=== PATIENT | female | born 1995 | race Hispanic/Latino ===

== ENCOUNTER 2020-07-24 12:00 | Day surgery (SDC) | payer MEDICAID ==
[2020-07-17 11:45] LABS: BASOPHILS % (AUTO) 0.3 % (0.0-5.0); EOSINOPHILS % (AUTO) 1.9 % (0.0-8.0); HEMATOCRIT 43.6 % (36-48); MEAN CORPUSCULAR HEMOGLOBIN 29.6 pg (27.0-33.0); MEAN CORPUSCULAR HGB CONC 33.3 g/dL (32.0-36.0); MONOCYTES % (AUTO) 5.5 % (3.0-13.0); NEUTROPHILS % (AUTO) 62.1 % (40.0-77.0); PLATELET COUNT (AUTO) 232 K/uL (130-400); RED CELL DISTRIBUTION WIDTH 12.6 % (11.0-15.5); WHITE BLOOD COUNT (AUTO) 8.6 K/uL (4.8-10.8)
[2020-07-23 12:20] VITALS: BP 117/70
[~2020-07-24] VITALS: Ht 159 cm; Wt 72.7 kg
[2020-07-24] VITALS (20 sets, daily range): BP systolic 103–128; BP diastolic 63–75
[~2020-07-24 12:00] MED LIST: LURA20TA PO; LURA40TA PO; PREN1TAB26 PO
[2020-07-24] MEDS: LACTATED RINGERS 1000ML 1,000 ML IV SCH ×2 (12:22→15:45)
[2020-07-24] MEDS ORDERED: FENTANYL CITRATE PF 50 MCG/1 ML 2ML VIAL ONE (12:44)
[2020-07-24] MEDS ORDERED: SUCCINYLCHOLINE CHLORIDE 20 MG/ML 10 ML VIAL ONE (12:44)
[2020-07-24] MEDS ORDERED: ROCURONIUM 10MG/1ML SYR 10 MG/ML ML ONE (12:44)
[2020-07-24] MEDS ORDERED: LIDOCAINE PF 2% 5ML ABBOJECT ONE (12:44)
[2020-07-24] MEDS ORDERED: PROPOFOL 10 MG/ML 20ML VIAL IV ONE (12:44)
[2020-07-24] MEDS ORDERED: PHENYLEPHRINE HCL 10 MG/ML 1ML VIAL IV ONE (15:18)
[2020-07-24] MEDS ORDERED: SODIUM CHLORIDE 0.9% 10 ML VIAL ONE (15:18)
[2020-07-24] MEDS ORDERED: GLYCOPYRROLATE 1 MG/5 ML SYRINGE ONE (15:30)
[2020-07-24] MEDS ORDERED: NEOSTIGMINE 5MG/5ML SYR IV ONE (15:30)
[2020-07-24] MEDS ORDERED: MEPERIDINE-PF 25 MG/ML SYG ONE ×2 (15:50→15:57)
--- NOTE | 2020-07-24 17:10 | NUR ---
intake: drinking sips of water without complaining of nausea or no emesis at present time.
--- NOTE | 2020-07-24 17:10 | NUR ---
activity: hob elevated 45 degrees without complaining of dizziness or nausea.
== END 2020-07-24 18:00 | disposition home or self-care (01) ==
LOC: DAH 12:00
PROVIDERS: ATTEND Specialist
DX: Z30.2 Encounter for sterilization (principal); F32.9 Major depressive disorder, single episode, unspecified; Z20.828 Contact with and (suspected) exposure to other viral communicable diseases; Z79.899 Other long term (current) drug therapy
CPT/HCPCS: 36415 ×2; 58671; 82948; 84703; 85025; 86850 ×2; 86900 ×2; 86901 ×2; A4215 ×2; A4221; A4222; A4223; A4264; A4351; A4649; A4663; A6260; C1769 ×2; C9803; J0330; J2001; J2175 ×2; J2704; J2710; J3010; J3490; J7030 ×2; J7120 ×2; U0003; J2370

== ENCOUNTER → 2021-03-12 | Outpatient (CLI) | payer MEDICAID ==
[~2021-03-12] MED LIST changes: -PREN1TAB26 PO
== END | disposition home or self-care (01) ==
LOC: RAH 12:04
PROVIDERS: ATTEND Urology
DX: N20.0 Calculus of kidney (principal); K59.00 Constipation, unspecified; Z93.6 Other artificial openings of urinary tract status
CPT/HCPCS: 74018; 76100

== ENCOUNTER → 2021-04-15 | Outpatient (CLI) | payer MEDICAID | END | disposition home or self-care (01) | LOC: RAH 11:58 | PROVIDERS: ATTEND Urology | DX: N20.0 Calculus of kidney (principal); Z93.6 Other artificial openings of urinary tract status | CPT/HCPCS: 74018; 76100 ==